=== PATIENT | male | born 1975 | race Caucasian/White ===

== ENCOUNTER 2024-02-02 10:02 | Emergency (ER) | payer OTHER ==
[~2024-02-02] VITALS: Ht 185.4 cm; Wt 86.4 kg
[2024-02-02 10:06] VITALS: BP 124/88; TEMP 97.6; O2SAT 98
[2024-02-02] MEDS ORDERED: ADVI200T PO (10:10)
== END 2024-02-02 13:34 | disposition home or self-care (01) ==
LOC: M ED 10:02
DX: S83.411A Sprain of medial collateral ligament of right knee, initial encounter (principal); X50.0XXA Overexertion from strenuous movement or load, initial encounter; F17.200 Nicotine dependence, unspecified, uncomplicated; Z79.1 Long term (current) use of non-steroidal anti-inflammatories (NSAID); Y92.9 Unspecified place or not applicable; Y93.02 Activity, running; Y99.1 Military activity

== ENCOUNTER 2024-07-09 10:25 | Day surgery (SDC) | payer OTHER ==
[~2024-07-09] VITALS: Ht 185.4 cm; Wt 79.1 kg
[~2024-07-09 10:25] MED LIST: ADVI200T PO; THERTAB52 PO; VITA100093 PO
[2024-07-09] MEDS ORDERED: ROCURONIUM BROMIDE 50MG/5ML VIAL As Ordered ONE (10:44)
[2024-07-09] MEDS ORDERED: propofoL 200 MG/20 ML VIAL As Ordered ONE (10:44)
[2024-07-09] MEDS ORDERED: LIDOCAINE 2% INJ 100 MG/5 ML SYRINGE As Ordered ONE (10:44)
[2024-07-09] MEDS ORDERED: fentaNYL 100 MCG/2 ML INJECTION As Ordered ONE (10:44)
[2024-07-09] MEDS ORDERED: MIDAZOLAM INJ 2MG/2ML VIAL As Ordered ONE (10:45)
[2024-07-09] MEDS ORDERED: TRANEXAMIC ACID 100 MG/ML 10ML VIAL As Ordered ONE (12:30)
[2024-07-09] MEDS: ceFAZolin SOD 2 GM IV ONCE IV ONE (13:30)
[2024-07-09] MEDS: TRANEXAMIC ACID 100 MG/ML 10ML VIAL IV ONE (13:35)
[2024-07-09] MEDS ORDERED: ONDANSETRON 4MG 2ML VIAL As Ordered ONE (13:50)
[2024-07-09] MEDS ORDERED: ACETAMINOPHEN 1000MG/100ML IV BAG As Ordered ONE (14:11)
[2024-07-09] MEDS ORDERED: HYDROmorphone HCL 2MG/ML 1ML VIAL As Ordered ONE (14:18)
[2024-07-09] MEDS: EPINEPHrine 1MG/ML INJ 30ML MD-VIAL As Ordered ONE (14:20)
[2024-07-09] MEDS ORDERED: SUGAMMADEX SODIUM 500 MG/5 ML VIAL (BRIDION) As Ordered ONE (15:09)
[2024-07-09] MEDS ORDERED: KETOROLAC 30 MG/ML 1ML VIAL As Ordered ONE (15:19)
[2024-07-09] MEDS ORDERED: fentaNYL 100 MCG/2 ML INJECTION IV PRN (15:20)
[2024-07-09] MEDS: BUPivacaine LIPOSOME/PF 266MG 20ML VIAL (13.3MG/ML)(EXPAREL) As Ordered ONE (15:24)
[2024-07-09] MEDS: oxyCODONE 5MG TAB PO PRN (15:53)
[2024-07-09] MEDS: ONDANSETRON 4MG 2ML VIAL IV PRN (15:53)
[2024-07-09] MEDS: HYDROMORPHONE HCL 0.5 MG/ 0.5 ML SYRINGE IV PRN (15:54)
[2024-07-09 16:50] VITALS: BP 128/71; TEMP 97.5; O2SAT 99
== END 2024-07-09 17:11 | disposition home or self-care (01) ==
LOC: M SDC 10:25
PROVIDERS: ATTEND Orthopaedic Surgery
DX: M67.51 Plica syndrome, right knee (principal); M23.221 Derangement of posterior horn of medial meniscus due to old tear or injury, right knee; M23.8X1 Other internal derangements of right knee; M17.11 Unilateral primary osteoarthritis, right knee; M22.41 Chondromalacia patellae, right knee; F17.210 Nicotine dependence, cigarettes, uncomplicated
CPT/HCPCS: 29877; 29882; C1713; J0131; J0171; J0665; J0666; J0690; J1100; J1171; J1885; J2250; J2405; J3010